=== PATIENT | male | born 1985 | race Hispanic/Latino ===

== ENCOUNTER 2018-08-16 11:15 | Inpatient (IN) | payer MEDICAID ==
--- NOTE | 2018-08-16 12:06 | C.PDOC ---
History Of Present Illness Pt is a 33 year old male with PMHx of bipolar disorder, Schizo-effective axis 2 with psychotic features presents to ED for complaints of "racing thoughts." Patient states he feels "very emotional and wants to be in a secure place." Patient states all of this started when stopped taking his old psychiatric med (cannot recall name) and transitioned to Depakote. Patient reports last marijuana use 2 days ago and heroin 90 days ago. Patient also states drinking alcohol socially and smoking cigarettes daily. Denies hearing voices, other past medical problems, hearing voices, SI, HI, crack or cocaine use. Patient also states he lives in [place], [place] and comes to [place] for street drugs. Psychiatrist: * Kevin Kennedy ([place]) Time Seen by Provider: 08/16/18 11:51 Chief Complaint (Nursing): Psychiatric Evaluation History Per: Patient History/Exam Limitations: no limitations Onset/Duration Of Symptoms: Hrs Current Symptoms Are (Timing): Still Present Suicide/Self Injury Attempted (Context): None Modifying Factor(s): Alcohol, Marijuana Associated Symptoms: Depression. denies: Suicidal Thoughts, Suicidal Plan Involuntary Hold By: None Recent travel outside of the [place]: No Past Medical History Reviewed: Historical Data, Nursing Documentation, Vital Signs Vital Signs: Last Vital Signs Temp 98.7 F 08/16/18 11:25 Pulse 78 08/16/18 11:25 Resp 18 08/16/18 11:25 BP 114/75 08/16/18 11:25 Pulse Ox 98 08/16/18 11:25 - Medical History PMH: Bipolar Disorder Surgical History: No Surg Hx Family History: States: Diabetes, Other Other Family History: Arthritis - Social History Hx Tobacco Use: Yes Hx Alcohol Use: Yes Hx Substance Use: Yes (heroine) Review Of Systems Constitutional: Negative for: Fever, Chills Gastrointestinal: Negative for: Nausea, Vomiting, Abdominal Pain, Diarrhea Skin: Negative for: Rash Neurological: Negative for: Weakness, Numbness Psych: Positive for: Anxiety, Depression. Negative for: Suicidal ideation Physical Exam - Physical Exam Appears: Non-toxic, Other (Sobbing) Skin: Normal Color, Warm, Dry, No Rash Head: Atraumatic Eye(s): bilateral: Normal Inspection, EOMI Ear(s): Bilateral: Normal Nose: Normal Oral Mucosa: Moist Tongue: Normal Appearing Lips: Normal Appearing Teeth: Normal Dentition Throat: Normal Neck: Supple Lymphatic: Deferred Chest: Symmetrical, No Deformity Cardiovascular: Rhythm Regular, No Murmur Respiratory: Normal Breath Sounds, No Rales, No Rhonchi, No Wheezing Gastrointestinal/Abdominal: Bowel Sounds, Soft, No Tenderness Rectal: Deferred Back: Normal Inspection Extremity: Normal ROM, No Deformity Extremity: Bilateral: Atraumatic, Normal Color And Temperature Pulses: Left Radial: Normal, Right Radial: Normal Neurological/Psych: Oriented x3, Normal Speech, Normal Motor, Normal Sensation, Other (No focal deficits ) Gait: Steady ED Course And Treatment - Laboratory Results Result Diagrams: 08/16/18 12:54 08/16/18 12:54 ECG: Interpreted By Me ECG Rhythm: Sinus Rhythm ECG Interpretation: Normal Interpretation Of ECG: NSR at 62 bpm, no abnormalities, normal intervals O2 Sat by Pulse Oximetry: 98 (RA ) Pulse Ox Interpretation: Normal - Other Rad CXR X-Ray: Viewed By Me, Read By Radiologist Interpretation: Date of service: 08/16/2018. HISTORY: Detox/Psy. COMPARISON: No prior. TECHNIQUE: Chest PA and lateral. FINDINGS: LUNGS: No active pulmonary disease. PLEURA: No significant pleural effusion identified. No pneumothorax apparent. CARDIOVASCULAR: Normal. OSSEOUS STRUCTURES: No significant abnormalities. VISUALIZED UPPER ABDOMEN: Normal. OTHER FINDINGS: None. IMPRESSION: No active disease. Medical Decision Making Medical Decision Making: Initial Impression: * Schizophrenic effective disorder Initial Plan: * EKG * Blood work * Urinalysis * Behavior health evaluation Progress notes: Spoke at 12 noon to Crisis. Crisis will evaluate patient 1:55 PM - Patient is medically stable at this time for psychiatric disposition. 2:24 PM - Pt eloped from the hospital. Pt was not suicidal nor homicidal nor psychotic and was free to leave on his own. Disposition - Disposition Disposition: ELOPEMENT - ER ONLY Disposition Time: 14:22 Condition: FAIR - POA Present On Arrival: None - Clinical Impression Clinical Impression: Schizoaffective disorder - Scribe Statement The provider has reviewed the documentation as recorded by the Junibe Yaz Mendes All medical record entries made by the Scribe were at my direction and personally dictated by me. I have reviewed the chart and agree that the record accurately reflects my personal performance of the history, physical exam, medical decision making, and the department course for this patient. I have also personally directed, reviewed, and agree with the discharge instructions and disposition.
--- NOTE | 2018-08-16 12:52 | RAD ---
Date of service: 08/16/2018 HISTORY: Detox/Psy COMPARISON: No prior. TECHNIQUE: Chest PA and lateral FINDINGS: LUNGS: No active pulmonary disease. PLEURA: No significant pleural effusion identified. No pneumothorax apparent. CARDIOVASCULAR: Normal. OSSEOUS STRUCTURES: No significant abnormalities. VISUALIZED UPPER ABDOMEN: Normal. OTHER FINDINGS: None. IMPRESSION: No active disease.
[2018-08-16 13:03] LABS: BASO # 0.1 K/uL (0.0-0.2); EOS # 0.7 K/uL (0.0-0.7); HEMOGLOBIN 13.7 g/dL (12.0-18.0); LYMPH # 1.5 K/uL (1.0-4.3); LYMPH % 23.1 % (20.0-40.0); MEAN CELL VOLUME 86.8 fL (80.0-94.0); MEAN CORPUSCULAR HEMOGLOBIN 29.9 pg (27.0-31.0); MEAN CORPUSCULAR HGB CONC 34.5 g/dL (33.0-37.0); MEAN PLATELET VOLUME 7.3 fL (7.2-11.7); MONO # 0.6 K/uL (0.0-0.8); MONO % 8.7 % (0.0-10.0); NEUT # 3.8 K/uL (1.8-7.0); NEUT % 56.2 % (50.0-75.0); NRBC % 0.1 % (0.0-2.0); RBC 4.58 Mil/uL (4.40-5.90); RED CELL DISTRIBUTION WIDTH 12.8 % (11.5-14.5); WHITE BLOOD COUNT 6.7 K/uL (4.8-10.8)
[2018-08-16 13:11] LABS: SQUAMOUS EPITHIAL < 1 /hpf (0-5); URINE BILIRUBIN NEGATIVE (NEGATIVE); URINE BLOOD NEGATIVE (NEGATIVE); URINE CLARITY Clear (Clear); URINE COLOR Yellow (YELLOW); URINE GLUCOSE (UA) NORMAL (Normal); URINE LEUKOCYTE ESTERASE NEG Leu/uL (Negative); URINE PROTEIN NEGATIVE (NEGATIVE)
[2018-08-16 13:27] LABS: BARBITURATES, UR NEGATIVE (NEGATIVE); BENZODIAZEPINES, UR NEGATIVE (NEGATIVE); OPIATES, UR NEGATIVE (NEGATIVE); PHENCYCLIDINE, UR NEGATIVE (NEGATIVE)
[2018-08-16 13:43] LABS: ALB/GLOB RATIO 1.2 (1.0-2.1); ALT/SGPT 30 U/L (21-72); AST/SGOT 24 U/L (17-59); BLOOD UREA NITROGEN 13 mg/dL (9-20); CALCIUM 9.3 mg/dl (8.6-10.4); GFR NON-AFRICAN AMERICAN > 60
[2018-08-16 15:41] VITALS: O2SAT 99
--- NOTE | 2018-08-16 16:51 | PCM.BM ---
Treatment Plan Problems - Problems identified on initial assessmt depression Date Initiated: 08/16/18 Time Initiated: 16:49 Assessment reference: NA Status: Active Treatment assets and liabiliti Patient Assests: cooperative, educated, insightful, motivated, resourceful, ADL independent, physically healthy, good support system, negotiates basic needs, strong karly - Milieu Protocol Maintain good personal hygiene: daily Encourage regular showers, daily Remind patient to perform daily oral care, daily Assist patient to perform ADL's Conduct patient checks and document Observation sheet: Q15 minutes Maintain personal safety: every shift Educate patient to report safety concerns to staff, every shift Monitor environment for contraband/sharps Medication safety: Monitor for expected outcome, potential side effects: every shift, Assess barriers to learning: every shift, Assess readiness for medication education: every shift
--- NOTE | 2018-08-17 07:52 | PCM.PSYCH ---
Initial Psychiatric Evaluation - Initial Psychiatric Evaluation Type of Admission: Voluntary Legal Status: Capacity Chief Complaint (in patient's own words): I was feeling depressed.' History of Present Illness and Precipitating Events: Patient is a 33 year old single male, who came to the [facility] for anxiety, depression and paranoia. Pt reports past history more than one inpatient psychiatric hospitalizations and reports history of follow up with an unknown psychiatrist. Pt at time of interview pt appears anxious, paranoid and irritable. He remains disorganized and internally preoccupied. He reports of depressed mood, feelings of hopelessness and helplessness, poor sleep and poor appetite. He stated that he is from [place] and comes to [place] to get his drugs at this time marijuana. Patient explained that he is transitioning from "drug to psychiatric medication" and he's not being consistent with his medications. He also reports irritability, agitation and racing thoughts. He remains a poor historian and appears paranoid and delusional. Patient denies any suicidal or homicidal ideations.. He denies any drinking or any other drugs. Utox is negative as well. PMH: None reported Current Medications: Active Medications Generic Name Dose Route Start Last Admin Trade Name Freq PRN Reason Stop Dose Admin Diphenhydramine HCl 50 mg 08/16/18 18:00 Benadryl PO Q6 PRN Anxiety Divalproex Sodium 250 mg 08/16/18 22:00 08/16/18 21:45 Depakote Er PO 250 mg HS HECTOR Administration Quetiapine Fumarate 25 mg 08/16/18 22:00 08/16/18 21:45 Seroquel PO 25 mg HS HECTOR Administration Past Psychiatric History - Past Psychiatric History Previous Treatment History: Inpatient Pertinent Medical Hx (Current Medical&Sleep Prob, Allergies): Allergies Allergy/AdvReac Type Severity Reaction Status Date / Time No Known Allergies Allergy Unverified 08/16/18 11:25 Review of Systems - Review of Systems All systems: reviewed and no additional remarkable complaints except - Psychiatric Psychiatric: Anxiety, Auditory Hallucinations, Irritability, Paranoia Mental Status Examination - Personal Presentation Personal Presentation: Looks stated age - Affect Affect: Constricted - Motor Activity Motor Activity: Calm - Reliability in Providing Information Reliability in Providing Information: Poor, due to alteration in thoughts, Poor, due to altered mood - Speech Speech: Disorganized - Mood Mood: Anxious - Formal Thought Process Formal Thought Process: Delusions, Paranoia, Loosening of associations - Hallucinations/Delusions Delusions: Persecution - Obsessions/Compulsions Obsessions: No Compulsions: No - Cognitive Functions Orientation: Person, Place, Situation, Time Sensorium: Alert Attention/Concentration: Attentive Abstract Thinking: [place] Estimate of Intelligence: Below average Judgement: Imparied, as evidence by: Poor judgement, Imparied, as evidence by: Lack of insight into illness - Risk Risk: Withdrawal, Diminished functioning - Limitations Limitations: Living alone DSM 5 DX - DSM 5 DSM 5 Diagnosis: Bipolar disorder Manic severe with psychotic features r/o Schizoaffective disorder bipolar type - Recommended/Plan of Treatment Treatment Recommendations and Plan of Treatment: Bipolar disorder Manic severe with psychotic features r/o Schizoaffective disorder bipolar type -CBT -Psychotherapy -Supportive therapy, group therapy, individual therapy -Atarax 25 mg PO Q6 prn -Fluphenazine 5 mg PO BID -Cogentin 1 mg PO BID -Trazodone 50 mg PO QHS prn -Depakote 250 mg PO BID - Smoking Cessation Smoking Cessation Initiated: No
[2018-08-18 06:48] VITALS: BP 116/72; PULSE 73; RESP 20; TEMP 97.6
--- NOTE | 2018-08-18 20:00 | PCM.PYCHDC ---
Mental Status Examination - Mental Status Examination Orientation: Person, Place, Situation, Time Memory: Intact Mood: Neutral Affect: Other (Appropriate) Speech: Appropriate Attention: WNL Concentration: WNL Association: WNL Fund of Knowledge: WNL Formal Thought Process: No Impairment Description of patient's judgement and insight: Good Psychotic Thoughts and Behaviors: None Suicidal Ideation: No Current Homicidal Ideation?: No Discharge Summary - Discharge Note Reason for Hospitalization: Schizoaffective disorder depressive type Laboratory Data: Reviewed Consultations:: List each consultation separately and include: 1. Reason for request. 2. Findings. 3. Follow-up Summary of Hospital Course include:: 1. Description of specific treatment plan utilized for patients during their course of treatmen. 2. Summarize the time- course for resolution of acute symptoms and/or regressed behaviors. 3. Describe issues identified and worked on during hospitalization. 4. Describe medication utilized. 5. Describe medical problems identified and treated. 6. Reassessment of suicide risk Summary of Hospital Course: Patient request evaluation for feelings of anxiety and depression. Denies HI/SI at this time. Patient is a 33 year old single male referred by self and brought in byself for an evaluation and feelings of anxiety and depression. Patient stated that he is from [place] and comes to [place] to get his drugs at this time marijuana. Patient explained that he is transitioning from "drug to psychiatric medication" and he's not being consistant with his medications. Patient said that he takes them sporadically. Patient stated that due to his being inconsistant his thoughts are racing, he's anxious and has urges to use street drugs. Patient said that he wants a 28 day program. Clinician explained that we don't offer a 28 day program. Patient said well then what do you have and Clinician explained we have a psychiatric inpatient unit and the average lengh of say is 3-5 days. Patient said okay I'll stay 5 days and then disclosed that he has Court on Saturday. Patient currently denies any suicidal/homicidal ideations along with auditory/visual hallucinations. During his stay in the hospital patient was treated with Depakote, fluphenazine and Cogentin. He was also started on other as needed medications. During his hospital stay patient also attended groups and other activities on the unit. With the above treatment, patient started feeling better. Today patient was stable and ready for discharge. At the time of evaluation and discharge, patient was awake alert oriented x3, calm and cooperative. Denied any delusions, auditory or visual hallucinations, no suicidal ideations or homicidal ideations at the time of evaluation and discharge. Patient was discharged in stable condition. Patient reported that he will see his psychiatrist Dr. Castillo in [place]. - Final Diagnosis (DSM 5) Condition upon Discharge: FAIR Disposition: HOME/ ROUTINE Follow-up Treatment Plan: Patient reported that he will see his psychiatrist Dr. Castillo in [place]. Prescriptions/Medication Reconciliation: Divalproex [Depakote ER] 250 mg PO BID #60 ter Divalproex [Depakote ER] 250 mg PO HS #30 ter fluPHENAZine [Prolixin] 5 mg PO BID #30 tab - Smoking Cessation Smoking Cessation Medication prescribed: Yes - Antipsychotic Medications Pt discharged on 2 or more routine antipsychotic medications: No
--- NOTE | 2018-08-18 21:00 | CARD ---
APPROVED REPORT Date of service: 08/16/2018 EKG Measurement Heart [id number] <Conclusion> Normal sinus rhythm Normal ECG
== END 2018-08-18 11:00 | disposition home or self-care (01) | DRG 750 ==
LOC: C.ER 11:15 → C.5E 15:00
PROVIDERS: ADMIT Psychiatry & Neurology Psychiatry; ATTEND Psychiatry & Neurology Psychiatry
DX: F25.1 Schizoaffective disorder, depressive type (principal); E11.9 Type 2 diabetes mellitus without complications; F41.9 Anxiety disorder, unspecified; F12.90 Cannabis use, unspecified, uncomplicated; F17.210 Nicotine dependence, cigarettes, uncomplicated